=== PATIENT | female | born 1980 | race Caucasian/White ===

== ENCOUNTER 2022-10-09 12:56 | Emergency (ER) | payer SELFPAY ==
[2022-10-09 13:22] VITALS: BP 123/80; PULSE 72; TEMP 36.9; O2SAT 100; BMI 26.6
== END 2022-10-09 16:07 | disposition left against medical advice (07) ==
DX: Z53.21 Procedure and treatment not carried out due to patient leaving prior to being seen by health care provider (principal)

== ENCOUNTER 2022-10-25 12:11 | Outpatient (CLI) | payer SELFPAY | END 2022-10-25 12:12 | disposition home or self-care (01) | PROVIDERS: Visit Provider Advanced Practice Midwife | DX: Z11.3 Encounter for screening for infections with a predominantly sexual mode of transmission (principal) | CPT/HCPCS: 86592; 86703; 87491; 87591 ==